=== PATIENT | male | born 1990 | race Caucasian/White ===

== ENCOUNTER 2017-01-27 20:11 | Emergency (ER) | payer SELFPAY ==
[~2017-01-27] VITALS: Ht 182.9 cm; Wt 71.2 kg
[2017-01-27 20:13] VITALS: BP 131/78
== END 2017-01-27 20:52 | disposition home or self-care (01) ==
LOC: ED 20:46
DX: Z00.00 Encounter for general adult medical examination without abnormal findings (principal); F15.10 Other stimulant abuse, uncomplicated; F11.10 Opioid abuse, uncomplicated
CPT/HCPCS: 99281

== ENCOUNTER 2018-03-20 13:42 | Emergency (ER) | payer MEDICAID, OTHER ==
[~2018-03-20] VITALS: Ht 182.9 cm; Wt 83.0 kg
[2018-03-20 13:56] VITALS: BP 139/72
== END 2018-03-20 15:02 | disposition home or self-care (01) ==
LOC: ED 14:46
DX: L03.032 Cellulitis of left toe (principal); L03.031 Cellulitis of right toe; L01.00 Impetigo, unspecified; Z72.9 Problem related to lifestyle, unspecified; Z86.19 Personal history of other infectious and parasitic diseases
CPT/HCPCS: 99283